=== PATIENT | female | born 1955 | race Caucasian/White ===

== ENCOUNTER 2021-05-02 07:53 | Emergency (ER) | payer OTHER ==
[~2021-05-02] VITALS: Ht 152.4 cm; Wt 75.7 kg
[2021-05-02] MEDS ORDERED: FENOFIBRATE (08:08)
[2021-05-02] MEDS ORDERED: ELIQUIS (08:08)
[2021-05-02] MEDS ORDERED: VYVANCE (08:08)
[2021-05-02] MEDS ORDERED: CYMBALTA (08:08)
[2021-05-02] MEDS ORDERED: PIPERACILLIN SODIUM/TAZOBACTAM 3.375 G in IV DEXTROSE 5% 50 ML IV ONE (08:15)
[2021-05-02] MEDS ORDERED: TDAP DIPH,PERTUSS,TET VAC/PF 0.5 ML DISP.SYRIN IM ONE ×2 (08:15→08:33)
[2021-05-02] MEDS ORDERED: ACETAMINOPHEN 325 MG TABLET PO ONE (08:30)
[2021-05-02] MEDS ORDERED: ACETAMINOPHEN ES 500 MG TABLET ONE (08:33)
[2021-05-02] MEDS ORDERED: PIPERACILLIN/TAZOBACTAM/D5W 50 ML IV ONE (08:33)
--- NOTE | 2021-05-02 08:40 | NUR ---
PT IS IN ROOM #2A. DR QUISPE EVALUATED THE PT.
[2021-05-02] MEDS ORDERED: HYDR-3972 PO (08:52)
[2021-05-02] MEDS ORDERED: AMOX-430 PO (08:52)
--- NOTE | 2021-05-02 09:30 | NUR ---
PT WAS D/C'd TO HOME. D/C INSTRUCTIONS GIVEN TO THE PT BY DR QUISPE.
[2021-05-02 09:32] VITALS: BP 136/88
== END 2021-05-02 10:15 | disposition home or self-care (01) ==
LOC: ER 07:53
DX: S61.411A Laceration without foreign body of right hand, initial encounter (principal); W55.01XA Bitten by cat, initial encounter; Y92.039 Unspecified place in apartment as the place of occurrence of the external cause; E78.5 Hyperlipidemia, unspecified; Z86.718 Personal history of other venous thrombosis and embolism; Z79.01 Long term (current) use of anticoagulants; F32.A Depression, unspecified
CPT/HCPCS: 73120; 90471; 90715; 96365; 99283; J2543; A4217; A4663; A9150; J3490

== ENCOUNTER 2022-06-27 20:02 | Emergency (ER) | payer MEDICARE, OTHER ==
[~2022-06-27] VITALS: Ht 152.4 cm; Wt 79.4 kg
[~2022-06-27 20:02] MED LIST: AMOX-430 PO; CYMBALTA; ELIQUIS; FENOFIBRATE; HYDR-3972 PO; VYVANCE
--- NOTE | 2022-06-27 20:25 | NUR ---
Patient placed in room 2B
--- NOTE | 2022-06-27 20:32 | NUR ---
Dr. Perez evaluating patient at bedside. MSE in progress.
[2022-06-27] MEDS ORDERED: ONDANSETRON ODT 4 MG TAB.RAPDIS ONE (20:42)
[2022-06-27] MEDS ORDERED: AMOXICILLIN-CLAVUL 875-125MG TABLET ONE (20:42)
[2022-06-27] MEDS ORDERED: HYDROCODONE/APAP 5-325MG TABLET ONE (20:43)
[2022-06-27] MEDS ORDERED: HYDROCODONE/APAP 5-325MG TABLET PO ONE (20:45)
[2022-06-27] MEDS ORDERED: ONDA4TAB5 PO (20:45)
[2022-06-27] MEDS ORDERED: AMOXICILLIN-CLAVUL 875-125MG TABLET PO ONE (20:45)
[2022-06-27] MEDS ORDERED: AMOX-430 PO (20:45)
[2022-06-27] MEDS ORDERED: ONDANSETRON ODT 4 MG TAB.RAPDIS SL ONE (20:45)
[2022-06-27] MEDS ORDERED: HYDR-4209 PO (20:45)
[2022-06-27] MEDS ORDERED: OXYC-128 PO (20:57)
--- NOTE | 2022-06-27 21:02 | NUR ---
Patient's left hand wounds cleaned with betadine and dressed with band-aids.
[2022-06-27 21:25] VITALS: BP 123/74
== END 2022-06-27 21:15 | disposition home or self-care (01) ==
LOC: ER 20:02
DX: S61.452A Open bite of left hand, initial encounter (principal); E78.5 Hyperlipidemia, unspecified; Z88.8 Allergy status to other drugs, medicaments and biological substances; Z79.899 Other long term (current) drug therapy; Z79.2 Long term (current) use of antibiotics; W55.01XA Bitten by cat, initial encounter; Y93.89 Activity, other specified; Y92.89 Other specified places as the place of occurrence of the external cause; Y99.8 Other external cause status
CPT/HCPCS: A4663; Q0162